=== PATIENT | female | born 1995 | race Caucasian/White ===

== ENCOUNTER 2016-08-04 14:54 | Emergency (ER) | payer OTHER ==
[2016-08-04 15:05] VITALS: RESP 16
--- NOTE | 2016-08-04 15:25 | EDPHY ---
H & P Stated Complaint: lower back pain. "peeing blood". pain with urination. Time Seen by Provider: 08/04/16 15:20 HPI/ROS: CHIEF COMPLAINT: Dysuria, Hematuria HISTORY OF PRESENT ILLNESS: The patient is a 20 year old female with history of UTI 2 weeks ago, who presents with returned urinary complaints. The patient finished her antibiotics and felt fine until yesterday when symptoms of dysuria , hematuria, and low back pain returned. She has no history of kidney stones. The patient drank alcohol this weekend. No fevers or chills, no vomiting, no diarrhea. No cold, cough, lightheadedness , or dizziness. REVIEW OF SYSTEMS: Aside from elements discussed in the HPI, a comprehensive 10-point review of systems was reviewed and is negative. PAST MEDICAL HISTORY: UTI 2 weeks ago. SOCIAL HISTORY: Occasional alcohol. Nonsmoker. VITAL SIGNS: Reviewed by me GENERAL: Well-developed, well-nourished, resting comfortably in no respiratory distress. HEENT: Atraumatic. Eyes: No icterus, no injection. Mouth: moist mucous membranes. No erythema or lesions. Neck: supple with no adenopathy. LUNGS: Clear to auscultation bilaterally, no wheezes, rhonchi or rales. CARDIAC: Regular rate and rhythm, no rubs, murmurs or gallops. ABDOMEN: Soft, nontender, nondistended, bowel sounds normal. BACK: No CVA tenderness. Patient indicates mild discomfort across the lower back. EXTREMITIES: No trauma. No edema. Range of motion is normal throughout. NEURO: Alert and oriented, grossly nonfocal. SKIN: Warm and dry, no rash. PSYCHIATRIC: Normal mentation, no agitation. Portions of this note were transcribed by a medical scientist. I personally performed a history, physical exam, medical decision making, and confirmed accuracy of information the transcribed note. Source: Patient - Personal History LMP (Females 10-55): 8-14 Days Ago Current Tetanus Diphtheria and Acellular Pertussis (TDAP): Unsure - Medical/Surgical History Hx Asthma: No Hx Chronic Respiratory Disease: No Hx Diabetes: No Hx Cardiac Disease: No Hx Renal Disease: No Hx Cirrhosis: No Hx Alcoholism: No Hx HIV/AIDS: No Hx Splenectomy or Spleen Trauma: No Other PMH: UTI 2 weeks ago. - Social History Smoking Status: Never smoked Constitutional: Initial Vital Signs Temperature (C) 36.4 C 08/04/16 15:01 Heart Rate 80 08/04/16 15:01 Respiratory Rate 16 08/04/16 15:01 Blood Pressure 99/47 L 08/04/16 15:01 O2 Sat (%) 98 08/04/16 15:01 O2 Delivery Mode Room Air Allergies/Adverse Reactions: No Known Allergies Allergy (Unverified 08/04/16 15:04) Home Medications: Medication Instructions Recorded Cephalexin [Keflex (RX)] 500 mg PO TID 7 Days 08/04/16 Medical Decision Making ED Course/Re-evaluation: IV was established, patient received fentanyl and IV fluids. UA is pending. Plan for IV ceftriaxone if UA shows infection. UA shows infection. Plan to start patient on IV Ceftriaxone and a dose of Toradol for pain management. Kidney function is normal. 20-year-old female presenting with symptoms consistent with urinary tract infection and probable early pyelonephritis. Patient received ceftriaxone 1 g IV and was discharged on Keflex. Urine is sent for culture. Differential Diagnosis: Differential diagnoses for the patient's symptom complex was considered including but not limited to urinary tract infection, pyelonephritis, urethritis , resistant urinary tract infection, sepsis. - Data Points Laboratory Results: Laboratory Results 08/04/16 15:53 08/04/16 15:53 08/04/16 08/04/16 08/04/16 15:53 15:53 15:53 WBC 6.93 10^3/uL 10^3/uL (3.80-9.50) RBC 4.88 10^6/uL 10^6/uL (4.18-5.33) Hgb 16.1 g/dL g/dL (12.6-16.3) Hct 46.8 % % (38.0-47.0) MCV 95.9 fL fL (81.5-99.8) MCH 33.0 pg pg (27.9-34.1) MCHC 34.4 g/dL g/dL (32.4-36.7) RDW 12.5 % % (11.5-15.2) Plt Count 173 10^3/uL 10^3/uL (150-400) MPV 9.7 fL fL (8.7-11.7) Neut % (Auto) 62.8 % % (39.3-74.2) Lymph % (Auto) 28.4 % % (15.0-45.0) Bertie % (Auto) 6.8 % % (4.5-13.0) Eos % (Auto) 1.0 % % (0.6-7.6) Baso % (Auto) 0.6 % % (0.3-1.7) Nucleat RBC Rel Count 0.0 % % (0.0-0.2) Absolute Neuts (auto) 4.35 10^3/uL 10^3/uL (1.70-6.50) Absolute Lymphs (auto) 1.97 10^3/uL 10^3/uL (1.00-3.00) Absolute Monos (auto) 0.47 10^3/uL 10^3/uL (0.30-0.80) Absolute Eos (auto) 0.07 10^3/uL 10^3/uL (0.03-0.40) Absolute Basos (auto) 0.04 10^3/uL 10^3/uL (0.02-0.10) Absolute Nucleated RBC 0.00 10^3/uL 10^3/uL (0-0.01) Immature Gran % 0.4 % % (0.0-1.1) Immature Gran # 0.03 10^3/uL 10^3/uL (0.00-0.10) Sodium 139 mEq/L mEq/L (134-144) Potassium 3.9 mEq/L mEq/L (3.5-5.2) Chloride 105 mEq/L mEq/L (97-110) Carbon Dioxide 24 mEq/l mEq/l (22-31) Anion Gap 10 mEq/L mEq/L (8-16) BUN 9 mg/dL mg/dL (7-23) Creatinine 0.6 mg/dL mg/dL (0.6-1.0) Estimated GFR > 60 Glucose 102 mg/dL H mg/dL (70-100) Calcium 9.9 mg/dL mg/dL (8.5-10.4) Beta HCG, Qual NEGATIVE Urine Color Urine Appearance Urine pH Ur Specific [place] Urine Protein Urine Ketones Urine Blood Urine Nitrate Urine Bilirubin Urine Urobilinogen Ur Leukocyte Esterase Urine RBC Urine WBC Ur Epithelial Cells Urine Bacteria Urine Mucus Ur Culture Indicated? Urine Glucose 08/04/16 15:20 WBC RBC Hgb Hct MCV MCH MCHC RDW Plt Count MPV Neut % (Auto) Lymph % (Auto) Bertie % (Auto) Eos % (Auto) Baso % (Auto) Nucleat RBC Rel Count Absolute Neuts (auto) Absolute Lymphs (auto) Absolute Monos (auto) Absolute Eos (auto) Absolute Basos (auto) Absolute Nucleated RBC Immature Gran % Immature Gran # Sodium Potassium Chloride Carbon Dioxide Anion Gap BUN Creatinine Estimated GFR Glucose Calcium Beta HCG, Qual Urine Color ORANGE Urine Appearance CLEAR Urine pH TNP Ur Specific [place] TNP Urine Protein TNP Urine Ketones TNP Urine Blood TNP Urine Nitrate TNP Urine Bilirubin TNP Urine Urobilinogen TNP Ur Leukocyte Esterase TNP Urine RBC 5-10 /hpf H /hpf (0-3) Urine WBC 50-182 /hpf H /hpf (0-3) Ur Epithelial Cells TRACE /lpf /lpf (NONE-1+) Urine Bacteria 2+ /hpf H /hpf (NONE SEEN) Urine Mucus TRACE /lpf /lpf (NONE-1+) Ur Culture Indicated? INDICATED H (NI) Urine Glucose TNP Medications Given: Discontinued Medications Fentanyl (Sublimaze) 50 mcg IVP EDNOW ONE Stop: 08/04/16 15:50 Last Admin: 08/04/16 16:19 Dose: 50 mcg Sodium Chloride (Ns) 1,000 mls @ 0 mls/hr IV ONCE ONE PRN Reason: Wide Open Stop: 08/04/16 15:50 Last Admin: 08/04/16 16:19 Dose: 1,000 mls Sodium Chloride (Ns) 1,000 mls @ 0 mls/hr IV ONCE ONE PRN Reason: Wide Open Stop: 08/04/16 15:51 Last Admin: 08/04/16 16:35 Dose: 1,000 mls Ceftriaxone Sodium/Dextrose (Rocephin 1 Gm (Premix)) 50 mls @ 100 mls/hr IV EDNOW ONE PRN Reason: Protocol Stop: 08/04/16 16:54 Last Admin: 08/04/16 16:35 Dose: 50 mls Ketorolac Tromethamine (Toradol) 15 mg IVP EDNOW ONE Stop: 08/04/16 16:22 Last Admin: 08/04/16 16:35 Dose: 15 mg Ondansetron HCl (Zofran) 4 mg IVP EDNOW ONE Stop: 08/04/16 15:50 Last Admin: 08/04/16 16:19 Dose: 4 mg Departure - Departure Disposition: Home, Routine, Self-Care Clinical Impression: UTI (urinary tract infection) Condition: Good Instructions: Urinary Tract Infection in Women (ED) Additional Instructions: Take full course of Keflex as directed. Drink plenty of fluids. Followup at [facility] if you continue to have symptoms. Return to the Emergency Department if you develop fever, increased pain, or worsening symptoms. Referrals: [facility],. [Clinic] - As per Instructions Prescriptions: Cephalexin [Keflex (RX)] 500 mg PO TID 7 Days Report Scribed for: Nakia Hall Report Scribed by: Saskia Chavez Date of Report: 08/04/16 Time of Report: 15:45
[2016-08-04] MEDS ORDERED: fentaNYL 100 MCG/2 ML INJ IVP ONE (15:49)
[2016-08-04] MEDS ORDERED: NS 1,000 ML IV ONE ×2 (15:49→15:50)
[2016-08-04] MEDS ORDERED: ONDANSETRON 4 MG/2 ML VIAL IVP ONE (15:49)
[2016-08-04 16:00] LABS: COLOR ORANGE
[2016-08-04 16:01] LABS: % IMMATURE GRANULYOCYTES 0.4 % (0.0-1.1); ABSOLUTE IMMATURE GRANULOCYTES 0.03 10^3/uL (0.00-0.10); ADD DIFF? NO; ADD MORPH? NO; ADD SCAN? NO; ATYPICAL LYMPHOCYTE FLAG 0 (0-99); FRAGMENT RBC FLAG 0 (0-99); HEMATOCRIT 46.8 % (38.0-47.0); HEMOGLOBIN 16.1 g/dL (12.6-16.3); LEFT SHIFT FLG 0 (0-99); LIPEMIA HEMOLYSIS FLAG 90 (0-99); MEAN CELL HEMOGLOBIN CONCENTR. 34.4 g/dL (32.4-36.7); MEAN CELL VOLUME 95.9 fL (81.5-99.8); MEAN PLATELET VOLUME 9.7 fL (8.7-11.7); PLATELET CLUMPS FLAG 0 (0-99); PLATELET COUNT 173 10^3/uL (150-400); RED BLOOD CELL COUNT 4.88 10^6/uL (4.18-5.33); RED CELL DISTRIBUTION WIDTH 12.5 % (11.5-15.2)
[2016-08-04 16:03] LABS: BACTERIA 2+ /hpf (NONE SEEN); MUCUS TRACE /lpf (NONE-1+); WBC,URINE 50-182 /hpf (0-3)
[2016-08-04 16:12] LABS: ANION GAP 10 mEq/L (8-16); CALCIUM 9.9 mg/dL (8.5-10.4); CARBON DIOXIDE 24 mEq/l (22-31); CHLORIDE 105 mEq/L (97-110); CREATININE 0.6 mg/dL (0.6-1.0); GLOMERULAR FILTRATION RATE > 60; GLUCOSE 102 mg/dL (70-100); POTASSIUM 3.9 mEq/L (3.5-5.2); SODIUM 139 mEq/L (134-144)
[2016-08-04] MEDS ORDERED: KETOROLAC 15 MG/1 ML SDV IVP ONE (16:21)
[2016-08-04] MEDS ORDERED: cefTRIAXone 1 GM in D5W 50 ML IV ONE (16:21)
[2016-08-04 17:25] VITALS: BP 121/77; PULSE 59; TEMP 97.9; O2SAT 97
== END 2016-08-04 17:49 | disposition home or self-care (01) ==
DX: N39.0 Urinary tract infection, site not specified (principal); B96.20 Unspecified Escherichia coli [E. coli] as the cause of diseases classified elsewhere
CPT/HCPCS: 96365; J0696; J1885; J2405; J3010

== ENCOUNTER 2018-04-11 05:51 | Emergency (ER) | payer SELFPAY ==
[2018-04-11 06:01] VITALS: BP 107/84
[2018-04-11] MEDS ORDERED: NITROFURANTOIN 100MG PREPACK#2 BTL TAKEHOME ONE (06:02)
--- NOTE | 2018-04-11 06:02 | EDPHY ---
H & P Time Seen by Provider: 04/11/18 05:58 HPI/ROS: Chief Complaint: UTI symptoms, back pain HPI: 22-year-old woman with a history of urinary tract infections in the past is presenting with 1 week of UTI symptoms. She is having urinary urgency and frequency. She has not seen a physician or started antibiotics. Last menstrual period about a month ago. No vaginal discharge or bleeding. She has some moderate left low back pain. No fevers or chills. No nausea or vomiting. She does have a history of urinary tract infections in the past. ROS: 10 systems were reviewed and were negative except those elements noted in the HPI. PMH: Urinary tract infection Social History: No smoking, occasional alcohol, no recreational drug use Family History: non-contributory Physical Exam: Gen: Awake, Alert, No Distress HEENT: Nose: no rhinorrhea Eyes: PERRLA, EOMI Mouth: Moist mucosa Neck: Supple, no JVD Chest: nontender, lungs clear to auscultation Heart: S1, S2 normal, no murmur Abd: Soft, mild low central tenderness in the pelvis causing the urge to void, no guarding Back: no CVA tenderness, no midline tenderness Ext: no edema, non-tender Skin: no rash Neuro: CN II-XII intact, Sensation grossly intact, Strength 5/5 in bilateral upper and lower extremities - Medical/Surgical History Hx Asthma: No Hx Chronic Respiratory Disease: No Hx Diabetes: No Hx Cardiac Disease: No Hx Renal Disease: No Hx Cirrhosis: No Hx Alcoholism: No Hx HIV/AIDS: No Hx Splenectomy or Spleen Trauma: No Other PMH: UTI 2 weeks ago. - Social History Smoking Status: Never smoked Allergies/Adverse Reactions: No Known Allergies Allergy (Verified 04/11/18 05:58) Home Medications: Medication Instructions Recorded Nitrofurantoin Monohyd/M-Cryst 100 mg PO BID #8 capsule 04/11/18 [Macrobid 100 mg Capsule] Phenazopyridine HCl [Pyridium] 200 mg PO TID #6 tab 04/11/18 Medical Decision Making ED Course/Re-evaluation: 22-year-old woman presenting with UTI symptoms. No vaginal discharge. Symptoms similar to prior UTIs in the past. Will start her on nitrofurantoin, refer her for outpatient follow-up. Departure - Departure Disposition: Home, Routine, Self-Care Clinical Impression: Urinary tract infection Condition: Good Instructions: Urinary Tract Infection in Women (ED) Additional Instructions: Please take her full course of antibiotics. Follow up with primary care physician in 3-4 days for further evaluation. Return to the emergency department for worsening pain, fevers or chills, nausea , vomiting, worsening back pain, or any other concerns. Referrals: Tyra Montgomery MD [[facility] [place] Primary Care Provider] - As per Instructions Prescriptions: Nitrofurantoin Monohyd/M-Cryst [Macrobid 100 mg Capsule] 100 mg PO BID #8 capsule Phenazopyridine HCl [Pyridium] 200 mg PO TID #6 tab
[2018-04-11] MEDS ORDERED: PHENAZOPYRIDINE HCL 200 MG TAB PO ONE (06:03)
== END 2018-04-11 06:13 | disposition home or self-care (01) ==
DX: N39.0 Urinary tract infection, site not specified (principal)